=== PATIENT | female | born 1990 | race Caucasian/White ===

== ENCOUNTER 2018-10-11 01:37 | Emergency (ER) | payer MEDICAID ==
[~2018-10-11] VITALS: Ht 167.6 cm; Wt 91.6 kg
[2018-10-11 01:40] VITALS: Ht 167.6 cm; Wt 91.6 kg
[2018-10-11 03:05] VITALS: BP 129/68
== END 2018-10-11 03:05 | disposition home or self-care (01) ==
LOC: ED 01:37
DX: J45.901 Unspecified asthma with (acute) exacerbation (principal); Z88.0 Allergy status to penicillin; Z91.013 Allergy to seafood
CPT/HCPCS: J7512; J7620